=== PATIENT | male | born 1990 | race American Indian/Alaskan Native ===

== ENCOUNTER 2018-03-07 06:55 | Emergency (ER) | payer SELFPAY ==
[2018-03-07 07:04] VITALS: BP 155/79
--- NOTE | 2018-03-07 08:41 | Emergency Department Report ---
ED Rash HPI - HPI Chief Complaint: Skin Rash Stated Complaint: ANIMAL BITE Time Seen by Provider: 03/07/18 08:40 Duration: Today Location: Upper Extremities (left arm) Suspected Cause: Insect (spider) Rash Symptoms: No Itching, No Facial Swelling, No Tongue/Oral Swelling, No Breathing Difficulties, No Choking Sensation, No Wheezing/Dyspnea, No Peeling, No Blistering, No Fever, No Lightheaded, No Malaise, No Myalgias Other History: Patient reports that he was bit by a spider yesterday and is having left arm pain with numbness and tingling going down his left arm. He says his sore at his left arm. Tetanus vaccine is up-to-date. Pain is 2/10 and feels sore. No alleviating factors. No medication taken for pain. Denies any nausea vomiting or any upper respiratory symptoms. Denies any swollen tongue lips, facial area neck or any difficulty breathing, stridor or difficulty swallowing. Denies any fevers chills ED Review of Systems ROS: Stated complaint: ANIMAL BITE Other details as noted in HPI Constitutional: denies: chills, fever Eyes: denies: eye discharge ENT: denies: ear pain, throat pain, congestion Respiratory: denies: cough, shortness of breath, SOB with exertion, SOB at rest , stridor, wheezing Cardiovascular: denies: chest pain, palpitations, edema, syncope Gastrointestinal: denies: abdominal pain, nausea, vomiting, diarrhea Genitourinary: denies: urgency, dysuria Musculoskeletal: denies: back pain, joint swelling, arthralgia, myalgia Skin: denies: rash, lesions Neurological: denies: headache, weakness ED Past Medical Hx - Past Medical History Previous Medical History?: No - Surgical History Past Surgical History?: No - Family History Family history: no significant - Social History Smoking Status: Never Smoker Substance Use Type: None - Medications Home Medications: Home Medications Medication Instructions Recorded Confirmed Last Taken Type Ibuprofen [Motrin] 600 mg PO Q8H PRN #12 tablet 03/07/18 Unknown Rx cephALEXin [Keflex] 500 mg PO Q8HR 10 Days #30 cap 03/07/18 Unknown Rx Rash Exam - Exam General: Vital signs noted. No distress. Alert and acting appropriately. This is a 27-year-old male well-nourished well-developed in no acute distress. HEENT: No Periorbital Edema, No Conjuctival Injection, No Chemosis, No Perioral Edema, No Tongue Edema, No Uvular Edema, No Compromised Airway, No Drooling Lungs: Yes Good Air Exchange (clear to auscultation bilaterally no rhonchi wheezes or rales. Normal work of breathing), No Wheezes, No Ronchi, No Stridor , No Cough, No Labored Respirations, No Retractions, No Use of Accessory Muscles , No Other Abnormal Lung Sounds Heart: Yes Regular (bradycardic at 59 and asymptomatic ) Front/Back of Body, Lg (Color): 1 - Small area to left lateral outer forearm minimal swelling without any erythema. No entrance wound noted. No stinger noted. No drainage. Bilateral upper extremity normal exam Skin: Yes Other (mild tenderness with dime size swelling to left upper outer lateral forearm. No entrance wound and sleeping are noted. No erythema.), No Urticarial Rash, No Maculopapular Rash, No Morbilliform rash, No Bulla(e), No Excoriations, No Weeping, No Tenderness, No Erythema, No Edema, No Encrustations Other: Positive: Abdomen Normal, Neurologic Normal, Musculoskeletal Normal (No cce. + 2 pulses in all extremities, no neurovascular compromise. Sclerae skeletal exam is normal without any abnormality in range of motion.) ED Course Vital Signs 03/07/18 07:03 Temperature 98.5 F Pulse Rate 57 L Respiratory 16 Rate Blood Pressure 155/79 [Right] O2 Sat by Pulse 98 Oximetry - Reevaluation(s) Reevaluation #1: 03/07/18 09:31 Patient received 60.5 mL injection and Motrin 800 mg at emergency room. ED Medical Decision Making - Medical Decision Making This is a 27-year-old male reportedly was bitten by a spider yesterday and he is oriented because he has area to his left arm to full and this radiated down to his forearm and he is here to be evaluated Assessment/plan 1: Insect bites-PC exam note for details. Patient given Boostrix 0.5 mL to update tetanus. Patient will be discharged home in Keflex 2: Arthralgia left upper extremity-Motrin 800 mg by mouth given for pain relief. Patient will be discharged on Motrin I discussed with patient diagnosis and treatment plan and told him to apply warm compresses to affected site 3-4 times a day for 15 minutes at a time and area is swollen but there is no redness or entrance wounds. There is moderate tenderness to palpate and extremity exam otherwise is normal. I discussed with the medication and he voiced understanding. Vital signs stable afebrile and nontoxic in appearance. Pain is better and discharged home with Keflex and Motrin. Patient understands that he is to follow-up with his primary care and 3 -5 days and if he does not have a primary care to follow up at [facility] Critical care attestation.: If time is entered above; I have spent that time in minutes in the direct care of this critically ill patient, excluding procedure time. ED Disposition Clinical Impression: Insect bite Qualifiers: Encounter type: initial encounter Qualified Code(s): W57.XXXA - Bitten or stung by nonvenomous insect and other nonvenomous arthropods, initial encounter Disposition: DC-01 TO HOME OR SELFCARE Is pt being admited?: No Condition: Stable Instructions: Insect Bite or Sting (ED) Additional Instructions: Please keep affected area clean and dry Take Medication as prescribed Primary care in 5 days as discussed Referrals: PRIMARY CARE, [Primary Care Provider] - 2-3 Days [facility] [Outside] - 2-3 Days Forms: Work/School Release Form(ED)
[2018-03-07] MEDS ORDERED: BOOSTRIX IM ONE (09:16)
[2018-03-07] MEDS ORDERED: MOTRIN PO ONE (09:16)
== END 2018-03-07 09:51 | disposition home or self-care (01) ==
LOC: ED 06:55
DX: S40.862A Insect bite (nonvenomous) of left upper arm, initial encounter (principal); W57.XXXA Bitten or stung by nonvenomous insect and other nonvenomous arthropods, initial encounter; Y93.89 Activity, other specified; Y92.89 Other specified places as the place of occurrence of the external cause; Y99.8 Other external cause status
CPT/HCPCS: 90471; 90715; 99282